=== PATIENT | male | born 1950 | race Caucasian/White ===

== ENCOUNTER 2019-04-07 11:48 | Emergency (ER) | payer MEDICARE, OTHER, SELFPAY ==
[2019-04-07] VITALS (8 sets, daily range): BP systolic 118–144; BP diastolic 88–97; PULSE 78–87; RESP 10–21; TEMP 36.7; O2SAT 96–100
--- NOTE | 2019-04-07 12:03 | DI.RAD.S_ITS ---
PROCEDURE: XR CHEST 1V INDICATIONS: chest pain TECHNIQUE: One view of the chest was acquired. COMPARISON: [facility], CR, XR CHEST 1 VIEW, 03/15/2019, 15:00. [facility], CT, CT ANGIO CHEST PE, 03/15/2019, 19:00. FINDINGS: Surgical changes and devices: None. Lungs and pleura: Left perihilar opacity is again noted, relatively unchanged. There is minimal appearance of streaky opacity within the right base. It is noted consolidative opacity within the left lower lobe on CT chest of 03/15/19 is not appreciated on current exam. Mediastinum: Mediastinal contours appear normal. Heart size is normal. Bones and chest wall: No suspicious bony lesions. Overlying soft tissues appear unremarkable. IMPRESSION: 1. Persistent left perihilar mass as previously identified. Further evaluation for neoplasm is suggested. 2. Streaky right basilar opacity representing dependent edema, atelectasis or potentially developing pneumonia. Dictated by: Tatum Majano M.D. on 04/07/2019 at 12:23 Approved by: Tatum Majano M.D. on 04/07/2019 at 12:26
[2019-04-07 12:26] LABS: Add Manual Diff / Slide Review NO; Basophils Absolute Auto 0 /uL (0-100); Basophils Percent Auto 0.2 % (0-2); Eosinophils Absolute Auto 0 /uL (0-450); Eosinophils Percent Auto 0.2 % (2-4); Hematocrit 33.2 % (41-53); Hemoglobin 11.8 g/dL (13.5-17.5); INR 1.2 (0.9-1.3); Lymphocytes Absolute Auto 1100 /uL (1100-4500); Lymphocytes Percent Auto 11.3 % (25-40); Mean Corpuscular HGB Conc 35.6 % (30-36); Mean Corpuscular Hemoglobin 36.5 PG (26-34); Mean Corpuscular Volume 102.5 fL (80-100); Monocytes Absolute Auto 600 /uL (0-900); Monocytes Percent Auto 6.4 % (3-14); Neutrophils Absolute Auto 7700 /uL (1500-7000); Neutrophils Percent Auto 81.9 % (50-75); Platelet Count 393 X10^3/uL (150-400); Prothrombin Time 13.5 SECONDS (10.1-12.7); Red Blood Cell Count 3.24 X10^6/uL (4.5-5.9); Red Cell Distribution Width 13.5 % (11.6-14.8); White Blood Cell Count 9.4 X10^3/uL (4.5-11.0)
[2019-04-07 12:29] LABS: PTT Partial Thromboplastin Tim 38 SECONDS (26.4-36.2)
[2019-04-07 12:31] LABS: Alanine Aminotransferase 10 IU/L (21-72); Albumin 3.8 g/dL (3.5-5.0); Albumin Globulin Ratio 1.1 (1.0-2.8); Alkaline Phosphatase 93 U/L (38-126); Aspartate Aminotransferase 22 IU/L (17-59); BUN Creatinine Ratio 22.2 (6-22); Bilirubin Total 0.4 mg/dL (0.2-1.3); Blood Urea Nitrogen 20 mg/dL (9-20); Calcium 11.6 mg/dL (8.4-10.2); Carbon Dioxide 29 mmol/L (22-32); Chloride 96 mmol/L (98-107); Creatine Kinase 42 U/L (55-170); Estimated Glomerular Filt Rate > 60.0 mL/min (>60); Globulin 3.5 g/dL (1.7-4.1); Glucose 100 mg/dL (80-110); HEMOLYSIS < 15 (0-50); Lipase 48 U/L (23-300); Magnesium 1.8 mg/dL (1.6-2.3); Potassium 3.7 mmol/L (3.4-5.1); Sodium 134 mmol/L (137-145); Total Protein 7.3 g/dL (6.3-8.2)
--- NOTE | 2019-04-07 12:34 | PC.NURSE ---
pt has increase in shortness of breath, chest pain since february. sob and pain has increased in the past 4 weeks. pt needs to stop and catch his breath while talking. today arrives to Er with fluid around his heart from Echo.
[2019-04-07 12:42] LABS: Troponin I 0.012 ng/mL (0.01-0.034)
--- NOTE | 2019-04-07 12:45 | ED.CHESTPAIN ---
HPI - Chest Pain General Chief Complaint: Chest Pain Stated Complaint: Fluid Around Heart, sent by heart clinic Time Seen by Provider: 04/07/19 12:27 Source: patient and family () Limitations: no limitations History of Present Illness HPI narrative: This is a 68-year-old male who comes to the emergency department with complaint of pericardial effusion that shows some tamponade. Patient outpatient with Dr. Carlton a fee for echo because of increasing shortness of breath. Patient states that it came on sort of quickly and started in February. He states he does sometimes get chest pain but states that really he has more issues with back pain and extremity pain. He states that nothing seems to exacerbate or alleviate it. He does take chronic pain medications for the past 20 years for his back. States he was normally very active until this summer. He states that he does get lightheaded but has not had any syncopal episodes. He notes particularly when he stands up that he feels lightheaded. He has had nausea and vomiting daily typically 3 or 4 times a day depending on when he is trying to eat. He has been chronically constipated has not had a bowel movement in 5 days but is passing flatus regularly. He states urine output has been okay. He has noticed some mild swelling in his lower extremities. He speaks 2-3 words and per his this is been slowly worsening over the past 4 weeks. Patient and state that they have been going through the process of being worked up as their suspicion that patient has cancer and that there was a known spot in his lungs. He does continue to smoke. He has a history of COPD these on Advair b.i.d.. He has had multiple colon resections for loss of polyps in his abdomen. He did have complications with some of these surgeries. He has had appendectomy and tonsillectomy. He drinks 3 or 4 cans of beer daily. He is and lives with his Ludy. Related Data Home Medications Medication Instructions Recorded Confirmed acetaminophen 1,000 mg PO BID MDD 2000 mg 04/07/19 04/07/19 alfuzosin 10 mg PO DAILY 04/07/19 04/07/19 cyclobenzaprine 10 mg PO DAILY 04/07/19 04/07/19 docusate sodium [Dulcolax Stool 100 mg PO DAILY 04/07/19 04/07/19 Softener (dss)] fluticasone propion-salmeterol 1 puff INHALATION BID PRN 04/07/19 04/07/19 [Advair Diskus] folic acid 1 mg PO DAILY 04/07/19 04/07/19 lgboansr-xat-CU-lycopen-lutein 1 tab PO DAILY 04/07/19 04/07/19 [Centrum Silver] naproxen sodium [Aleve] 220 mg PO DAILY 04/07/19 04/07/19 ondansetron 4 mg PO PRN PRN 04/07/19 04/07/19 oxycodone [OxyContin] 10 mg PO Q12H 04/07/19 04/07/19 oxycodone-acetaminophen 1 tab PO PRN PRN 04/07/19 04/07/19 promethazine 6.25 mg PO PRN PRN 04/07/19 04/07/19 ranitidine HCl 150 mg PO BID PRN 04/07/19 04/07/19 sennosides [senna] 8.6 - 25.8 mg PO DAILY 04/07/19 04/07/19 tizanidine 4 mg PO TID PRN 04/07/19 04/07/19 Allergies Allergy/AdvReac Type Severity Reaction Status Date / Time No Known Drug Allergies Allergy Verified 04/07/19 12:03 Review of Systems Review of Systems ROS Unobtainable: All systems reviewed & are unremarkable except as noted in HPI and below Constitutional Constitutional: Denies chills, Reports fatigue, Denies fever(s), Reports lethargy, Reports malaise and Denies weakness Cardiovascular Cardiovascular: Reports chest pain, Reports chest pain at rest, Reports chest pain with activity, Denies diaphoresis, Denies syncope, Reports pedal edema (mild), Reports lightheadedness, Denies radiating jaw, neck or arm pain, Denies palpitations, Reports dyspnea and Reports dyspnea on exertion Respiratory Respiratory: Denies change in phlegm color, Denies chest congestion, Denies excessive phlegm production, Reports dyspnea, Reports dyspnea on exertion and Denies wheezing Gastrointestinal Gastrointestinal: Denies abdominal pain, Denies change in bowel habits, Denies change in stool character, Reports constipation, Denies diarrhea, Reports nausea and Reports vomiting Genitourinary Genitourinary: Denies hematuria, Denies difficulty urinating, Denies flank pain, Denies urinary frequency, Denies urinary hesitancy, Denies urinary incontinence and Denies urinary urgency Musculoskeletal Musculoskeletal: Reports back pain (chronic per patient) and Reports arthralgias Integumentary/Breasts Skin/Breast: Denies rash Neurologic Neurologic: Denies confusion, Denies syncope and Denies weakness Psychiatric Psychiatric: Denies confusion Endocrine Endocrine: Reports fatigue and Denies palpitations Allergic/Immunologic Allergic/Immunologic: Denies wheezing [facility] Medical History (Updated 04/07/19 @ 13:10 by Andreia De La Paz DO) Colon polyps (Acute) Surgical History (Updated 04/07/19 @ 13:11 by Andreia De La Paz DO) History of tonsillectomy (Acute) Hx of appendectomy (Acute) Social History (Updated 04/07/19 @ 13:11 by Andreia De La Paz DO) marital status: details: Ludy is . Smoking Status: Current every day smoker alcohol intake: current Social History (Updated 04/07/19 @ 13:11 by Andreia De La Paz DO) marital status: details: Ludy is . Smoking Status: Current every day smoker alcohol intake: current Exam Narrative Exam Narrative: GENERAL: Alert and oriented x three, thin elderly appearing male in mild distress. HEENT: Head normocephalic, atraumatic, EOMI, pupils reactive, face symmetric, moist mucous membranes NECK: Supple, full range of motion CARDIOVASCULAR: Regular rate and rhythm without murmurs, possible of breath rubm, no gallops. + JVD. No edema noted bilateral lower extremities. RESPIRATORY: Breath sounds equal bilaterally, no wheezes rales or rhonchi. Tachypnea. Patient speaks in 2-3 word sentences. ABDOMEN: Soft, nontender. Normoactive bowel sounds all 4 quadrants. No guarding or rebound, rigidity, no mass noted, patient has a mid abdominal incisional hernia that is soft, nontender and easily reducible I am also able to know a smaller hernia in the left lower quadrant that is also easily reducible and soft and nontender. : No CVA tenderness EXTREMITIES: Normal range of motion, 2+ pulses bilateral lower extermities. Neurovascularly intact NEUROLOGICAL: Cranial nerves II through XII grossly intact. Moving all extremities SKIN: Warm, dry, no petechiae, no rashes or lesions. Initial Vital Signs Initial Vital Signs: Vital Signs Temperature 98.1 F 04/07/19 11:59 Pulse Rate 87 04/07/19 11:59 Respiratory Rate 21 04/07/19 11:59 Blood Pressure 127/88 04/07/19 11:59 Pulse Oximetry 100 04/07/19 11:59 Course Orders Ordered: ED Orders 04/07/19 12:03 XR chest 1V Stat EKG-12 Lead Stat 04/07/19 12:04 BNP [B Type Natriuretic Peptide] Stat Complete Blood Count AUTO DIFF Stat Comprehensive Metabolic Panel Stat Lipase Stat Magnesium Stat Partial Thromboplastin Time Stat Prothrombin Time INR Stat Troponin & CK Cardiac Panel Stat Type and Screen Stat Discontinued Medications Sodium Chloride (Normal Saline 0.9%) 1,000 mls @ 100 mls/hr IV CONT JENS Last Infusion: 04/07/19 15:58 Dose: 0 mls/hr Documented by: Admin: 04/07/19 12:59 Dose: 100 mls/hr Documented by: TRIXIE Morphine Sulfate (Morphine) 4 mg IV NOW ONE Stop: 04/07/19 12:48 Last Admin: 04/07/19 12:58 Dose: 4 mg Documented by: TRIXIE Vital Signs Vital signs: Vital Signs - 8 hr 04/07/19 11:59 04/07/19 12:30 04/07/19 12:45 Temperature 98.1 F Pulse Rate 87 81 81 Respiratory Rate 21 12 18 Blood Pressure 127/88 Blood Pressure [Left Arm] 118/91 H Blood Pressure [Right Arm] 118/91 H 120/89 Pulse Oximetry 100 97 97 04/07/19 13:00 04/07/19 13:30 04/07/19 14:00 Temperature Pulse Rate 80 78 78 Respiratory Rate 15 12 14 Blood Pressure Blood Pressure [Left Arm] 139/96 H 136/97 H 121/91 H Blood Pressure [Right Arm] Pulse Oximetry 98 97 97 04/07/19 14:36 04/07/19 15:00 Temperature Pulse Rate 78 79 Respiratory Rate 13 10 L Blood Pressure Blood Pressure [Left Arm] 135/94 H 144/97 H Blood Pressure [Right Arm] Pulse Oximetry 96 99 MDM - Chest Pain Lab Data Attestation: I reviewed the patient's lab results. Result diagrams: 04/07/19 12:04 04/07/19 12:04 Labs: Lab Results 04/07/19 04/07/19 04/07/19 Range/Units 12:04 12:04 12:04 WBC 9.4 (4.5-11.0) X10^3/uL RBC 3.24 L (4.5-5.9) X10^6/uL Hgb 11.8 L (13.5-17.5) g/dL Hct 33.2 L (41-53) % MCV 102.5 H (80-100) fL MCH 36.5 H (26-34) PG MCHC 35.6 (30-36) % RDW 13.5 (11.6-14.8) % Plt Count 393 (150-400) X10^3/uL Neut % (Auto) 81.9 H (50-75) % Lymph % (Auto) 11.3 L (25-40) % Haywood % (Auto) 6.4 (3-14) % Eos % (Auto) 0.2 L (2-4) % Baso % (Auto) 0.2 (0-2) % Neut # (Auto) 7700 H (5008-9487) /uL Lymph # (Auto) 1100 (3702-8916) /uL Haywood # (Auto) 600 (0-900) /uL Eos # (Auto) 0 (0-450) /uL Baso # (Auto) 0 (0-100) /uL PT 13.5 H (10.1-12.7) SECONDS INR 1.2 (0.9-1.3) APTT 38 H (26.4-36.2) SECONDS Sodium 134 L (137-145) mmol/L Potassium 3.7 (3.4-5.1) mmol/L Chloride 96 L (98-107) mmol/L Carbon Dioxide 29 (22-32) mmol/L BUN 20 (9-20) mg/dL Creatinine 0.90 (0.66-1.25) mg/dL Estimated GFR > 60.0 (>60) mL/min BUN/Creatinine Ratio 22.2 H (6-22) Glucose 100 (80-110) mg/dL Calcium 11.6 H (8.4-10.2) mg/dL Magnesium 1.8 (1.6-2.3) mg/dL Total Bilirubin 0.4 (0.2-1.3) mg/dL AST 22 (17-59) IU/L ALT 10 L (21-72) IU/L Alkaline Phosphatase 93 (38-126) U/L Total Creatine Kinase 42 L (55-170) U/L CK-MB (CK-2) TNP CK-MB (CK-2) Rel Index TNP Troponin I 0.012 (0.01-0.034) ng/mL B-Natriuretic Peptide (<100) Total Protein 7.3 (6.3-8.2) g/dL Albumin 3.8 (3.5-5.0) g/dL Globulin 3.5 (1.7-4.1) g/dL Albumin/Globulin Ratio 1.1 (1.0-2.8) Lipase 48 (23-300) U/L Blood Type Antibody Screen 04/07/19 04/07/19 Range/Units 12:04 12:04 WBC (4.5-11.0) X10^3/uL RBC (4.5-5.9) X10^6/uL Hgb (13.5-17.5) g/dL Hct (41-53) % MCV (80-100) fL MCH (26-34) PG MCHC (30-36) % RDW (11.6-14.8) % Plt Count (150-400) X10^3/uL Neut % (Auto) (50-75) % Lymph % (Auto) (25-40) % Haywood % (Auto) (3-14) % Eos % (Auto) (2-4) % Baso % (Auto) (0-2) % Neut # (Auto) (8114-7719) /uL Lymph # (Auto) (7804-4795) /uL Haywood # (Auto) (0-900) /uL Eos # (Auto) (0-450) /uL Baso # (Auto) (0-100) /uL PT (10.1-12.7) SECONDS INR (0.9-1.3) APTT (26.4-36.2) SECONDS Sodium (137-145) mmol/L Potassium (3.4-5.1) mmol/L Chloride (98-107) mmol/L Carbon Dioxide (22-32) mmol/L BUN (9-20) mg/dL Creatinine (0.66-1.25) mg/dL Estimated GFR (>60) mL/min BUN/Creatinine Ratio (6-22) Glucose (80-110) mg/dL Calcium (8.4-10.2) mg/dL Magnesium (1.6-2.3) mg/dL Total Bilirubin (0.2-1.3) mg/dL AST (17-59) IU/L ALT (21-72) IU/L Alkaline Phosphatase (38-126) U/L Total Creatine Kinase (55-170) U/L CK-MB (CK-2) CK-MB (CK-2) Rel Index Troponin I (0.01-0.034) ng/mL B-Natriuretic Peptide < 100 (<100) Total Protein (6.3-8.2) g/dL Albumin (3.5-5.0) g/dL Globulin (1.7-4.1) g/dL Albumin/Globulin Ratio (1.0-2.8) Lipase (23-300) U/L Blood Type O Positive Antibody Screen Negative Imaging Data Chest x-ray: Radiologist's impression: Phil Orlando [address] [address] XRay Report Signed Patient: Phil Orlando WMR#: [id number] : 1950Acct:[id number] Age/Sex: 68 / MDate of Service: 04/07/19 Loc: ED Accession Number: [id number] Procedure: XR chest 1V Ordering Provider: Andreia De La Paz D.O. PROCEDURE: XR CHEST 1V INDICATIONS: chest pain TECHNIQUE: One view of the chest was acquired. COMPARISON: [facility], CR, XR CHEST 1 VIEW, 03/15/2019, 15:00. [facility], CT, CT ANGIO CHEST PE, 03/15/2019, 19:00. FINDINGS: Surgical changes and devices: None. Lungs and pleura: Left perihilar opacity is again noted, relatively unchanged. There is minimal appearance of streaky opacity within the right base. It is noted consolidative opacity within the left lower lobe on CT chest of 03/15/19 is not appreciated on current exam. Mediastinum: Mediastinal contours appear normal. Heart size is normal. Bones and chest wall: No suspicious bony lesions. Overlying soft tissues appear unremarkable. IMPRESSION: 1. Persistent left perihilar mass as previously identified. Further evaluation for neoplasm is suggested. 2. Streaky right basilar opacity representing dependent edema, atelectasis or potentially developing pneumonia. Dictated by: Tatum Majano M.D. on 04/07/2019 at 12:23 Approved by: Tatum Majano M.D. on 04/07/2019 at 12:26 ECG Data Attestation: I personally reviewed and interpreted this ECG as follows: Prior ECG tracings: not available for review Interpretation: Sinus rhythm with a rate 89 P are 112 QRS 82 and QTC of 387. Patient has decreased voltage in extremity leads. No ST elevation or depression appreciated. No prior EKGs available for review. MDM Narrative Medical decision making narrative: Unable to see the report for patient's echo but results were called to me by Dr. Goodrich. They would like patient to go to [place] he also has his additional workup in place in [place] for possible adenocarcinoma of the lung. Patient has been having slowly worsening symptoms over time. He has not had any acute changes in the last several days. I spoke with Cardiology at [place] with Dr. Mosher, who asked that we give 100 cc fluid per hour for support for patient's tamponade in pericardial effusion. Aks that we speak with the hospitalist and they will happily see the patient in the hospital. Spoke with Dr. Duong the hospitalist who accepts. Please note labs show an anemia 11, patient's sodium 134 chloride 96 with normal creatinine. Calcium elevated and troponin and BNP are negative. Discharge Plan Departure Patient Disposition: [facility] Clinical Impression: Pericardial effusion, Dyspnea, Chest mass Discharge Date/Time: 04/07/19 15:35 Prescriptions: No Action cyclobenzaprine 10 mg Tablet 10 mg PO DAILY RF: 0 ranitidine HCl 150 mg Tablet 150 mg PO BID PRN (Reason: Indigestion) RF: 0 naproxen sodium [Aleve] 220 mg Tablet 220 mg PO DAILY RF: 0 folic acid 1 mg Tablet 1 mg PO DAILY RF: 0 fluticasone propion-salmeterol [Advair Diskus] 100-50 mcg/dose Blister With Device 1 puff INHALATION BID PRN (Reason: Shortness Of Breath) RF: 0 ondansetron 4 mg Tablet,Disintegrating 4 mg PO PRN PRN (Reason: Nausea) RF: 0 alfuzosin 10 mg Tablet Extended Release 24 Hr 10 mg PO DAILY RF: 0 tizanidine 4 mg Capsule 4 mg PO TID PRN (Reason: Spasms) RF: 0 oxycodone [OxyContin] 10 mg Tablet,Oral Only,Ext.Rel.12 Hr 10 mg PO Q12H RF: 0 sennosides [senna] 8.6 mg Tablet 8.6 - 25.8 mg PO DAILY RF: 0 acetaminophen 500 mg Tablet 1,000 mg PO BID MDD 2000 mg RF: 0 oxycodone-acetaminophen 5-325 mg Tablet 1 tab PO PRN PRN (Reason: pain) RF: 0 docusate sodium [Dulcolax Stool Softener (dss)] 100 mg Capsule 100 mg PO DAILY RF: 0 Centrum Silver 0.4-300-250 mg-mcg-mcg Tablet 1 tab PO DAILY RF: 0 promethazine 6.25 mg/5 mL syrup 6.25 mg PO PRN PRN (Reason: Nausea) RF: 0
[2019-04-07 12:47] LABS: B Type Natriuretic Peptide < 100 (<100)
[2019-04-07] MEDS: MORPHINE 4 MG/ML INJ IV (12:58)
[2019-04-07] MEDS: SODIUM CHLORIDE 0.9% 1,000 ML 100 ML IV (12:59)
== END 2019-04-07 15:35 | disposition short-term general hospital (02) ==
PROVIDERS: Emergency Provider Emergency Medicine; PCP Internal Medicine
DX: I31.3 Pericardial effusion (noninflammatory) (principal); R06.00 Dyspnea, unspecified; R22.2 Localized swelling, mass and lump, trunk
CPT/HCPCS: 36591; 71045; 80053; 82550; 83690; 83735; 83880; 84484; 85025; 85610; 85730; 86850; 86900; 86901; 93005; 96361; 96374; 99284; 99285; J2270